=== PATIENT | female | born 1960 | race Caucasian/White ===

== ENCOUNTER 2022-03-03 08:52 | Emergency (ER) | payer BC, SELFPAY ==
--- NOTE | ~2022-03-03 | XR_ITS ---
EXAMINATION: XR TIBIA AND FIBULA, RIGHT CLINICAL INFORMATION: Right leg pain status post fall. COMPARISON: None TECHNIQUE: AP and lateral views of the right tibia and fibula were obtained. An indicator arrow points to the anteroinferior calf. FINDINGS: The right tibia and fibula are intact. There is no acute fracture or dislocation. The tarsal bones are normally aligned. Mild soft tissue swelling is seen anteroinferiorly without underlying abnormality. XR/XR tibia fibula RT 2V IMPRESSION: Mild soft tissue swelling anteroinferiorly in the right calf without acute underlying osseous abnormality.
--- NOTE | ~2022-03-03 | CT_ITS ---
EXAMINATION: CT CERVICAL SPINE WITHOUT CONTRAST CLINICAL INFORMATION: Neck pain status post fall. COMPARISON: None TECHNIQUE: Multiple axial images of the cervical spine were obtained without the administration of intravenous contrast. Coronal and sagittal reformatted images were obtained. This CT examination was performed using dose optimization techniques as appropriate, variously including the following: *Automated exposure control *Adjustment of mA and/or kV according to patient size (this includes techniques or standardized protocols for targeted exams where dose is matched to indication/reason for exam; i.e. extremities or head) *Use of iterative reconstruction technique DLP: 366.32 mGy-cm FINDINGS: There is mild reversal of the normal cervical lordosis. Mild to moderate degenerative disc disease is seen most pronounced at C3-4 and C6-7. The vertebral bodies are intact. The odontoid process is intact with mild articular degenerative changes. The neural foramina are patent. The facet joints show mild to moderate degenerative changes most pronounced on the left at C4-5. The spinous processes are intact. The cervical soft tissues are unremarkable. There is no lymphadenopathy. The thyroid gland is unremarkable. The visualized lung apices are clear. CT/CT cervical spine wo IV con IMPRESSION: 1. Mild reversal of the normal cervical lordosis may be secondary to positioning and/or muscle spasm. 2. Mild to moderate multilevel degenerative changes without acute abnormality.
--- NOTE | ~2022-03-03 | CT_ITS ---
EXAMINATION: CT HEAD WITHOUT CONTRAST CLINICAL INFORMATION: Head pain status post fall. Rule out intracranial abnormality. COMPARISON: None TECHNIQUE: Contiguous axial imaging was performed from the skull base to vertex without intravenous administration of contrast. Coronal and sagittal reformatted images were obtained. This CT examination was performed using dose optimization techniques as appropriate, variously including the following: *Automated exposure control *Adjustment of mA and/or kV according to patient size (this includes techniques or standardized protocols for targeted exams where dose is matched to indication/reason for exam; i.e. extremities or head) *Use of iterative reconstruction technique DLP: 781 mGy-cm FINDINGS: The cortical sulci are normal. The lateral ventricles are symmetrical. The third and fourth ventricles are in their normal midline position. The basilar and prepontine cisterns are unremarkable. There is no acute intra or extracerebral abnormality. There is no mass effect or midline shift. Sections through the bony calvarium are unremarkable. The paranasal sinuses are clear. The bony orbits and orbital contents are unremarkable. CT/CT head/brain wo IV con IMPRESSION: No acute intracranial pathology.
[2022-03-03 09:01] VITALS: BP 126/72; PULSE 88; O2SAT 99
[2022-03-03 09:04] VITALS: BP 125/81; PULSE 72; RESP 16; TEMP 36.4; O2SAT 96; BMI 29.2
--- NOTE | 2022-03-03 09:08 | ED_ITS ---
HPI - Fall General Chief Complaint: Head Injury Stated Complaint: FALL W/HEAD LAC,BLEED CONTROL,-THINNERS PER EMS Time Seen by Provider: 03/03/22 09:06 Source: patient Mode of arrival: EMS Limitations: no limitations History of Present Illness complaint: fall Onset (ago): minute(s) (just prior to arrival ) Fall from: standing Fall witnessed: no Place fall occurred: home Loss of consciousness: none Prolonged down time: no Symptoms prior to fall: none Context: tripped/slipped Location of injury: head and face Location of injury - extremities: right: lower leg Severity: mild Quality: dull and aching Associated symptoms (after fall): headache Related Data Allergies Allergy/AdvReac Type Severity Reaction Status Date / Time Unable to Assess Allergy Verified 03/03/22 09:05 Review of Systems Review of Systems: Constitutional : No Fever, No Chills ENT/Mouth : No Ear Pain, No Hoarseness, No sore throat Eyes: No Eye Pain, No Swelling, No Redness, No Foreign Body Cardiovascular : No Chest Pain, No SOB Respiratory : No Cough, No Dyspnea Gastrointestinal : No Nausea, No Vomiting, No Diarrhea, No abdominal Pain Genitourinary : No Dysuria, No Hematuria Musculoskeletal : positive joint pain, No Myalgias, No Joint Swelling Skin : pos Skin lacerations, No rash Neuro : No Weakness, No Numbness, No Loss of Consciousness, No Dizziness, No Headache Psych : No Anxiety/Panic, No Depression Heme/Lymph: no easy bruising, no Lymphadenopathy Endocrine : No Polyuria, No Polydipsia All other systems reviewed and are negative [facility] Past Medical History Attestation statement: The following information was validated with the patient. Medical History No pertinent past medical history Social History Social History (Updated 03/03/22 @ 09:19 by Shakira Ro DO) Patient Tobacco Use Status: Never used Tobacco Advance Directives: No Advance Directives Information Provided: No Physical Exam Vital Signs: Vital Signs: Last Vital Signs Temp 97.6 F 03/03/22 09:04 Pulse 72 03/03/22 09:04 Resp 16 03/03/22 09:04 BP 125/81 03/03/22 09:04 Pulse Ox 96 03/03/22 09:04 O2 Del Method 03/03/22 09:04 BMI result Body Mass Index 29.2 Appearance: Alert. Oriented X3. No acute distress. Eyes: Pupils equal, round and reactive to light. ENT: Pharynx normal. R forehead 1cm laceration then 2cm stellate superficial laceration Neck: Normal inspection. Neck supple. CVS: Normal heart rate and rhythm. Pulses normal. Respiratory: No respiratory distress. Breath sounds normal. Abdomen: Soft and non-tender. Skin: Skin warm and dry. Normal skin color. Normal skin turgor. Extremities: No lower extremity edema. No calf ttp R anterior nelson contusion and superficial abrasion Neuro: Oriented X 3. No motor deficit. No sensory deficit. Procedures Laceration Laceration 1: Site: face Side (If applicable): right Size (cm): 1 Description: linear Depth: simple, single layer Local Anesthetic: lidocaine 1% Amount of anesthesia used (mL): 2 Pre-repair: wound explored and irrigated extensively Skin layer closed with: nylon Size (cm): 5-0 Number of sutures: 1 Technique: simple, interrupted Laceration 2: Site: face Size (cm): 2 Description: stellate Depth: simple, single layer Local Anesthetic: lidocaine 1% Amount of anesthesia used (mL): 2 Pre-repair: wound explored and irrigated extensively Skin layer closed with: nylon Size (cm): 5-0 Number of sutures: 4 Technique: simple, interrupted MDM - Fall MDM Narrative Medical decision making narrative: 61 yo female not on blood thinners here with mechanical fall injury to head and R leg - CT head/cspine as well as R tib xray - will need sutures for head, Tdap is UTD. She is GCS 15. Not toxic appearing. Discharge Plan Discharge Clinical Impression: Closed head injury, Abrasion Patient Disposition: Home, Self-Care Instructions: Head Injury (ED), Contusion in Adults (ED), Facial Laceration (ED) Additional Instructions: return to ED for any worsening symptoms or concerns okay to shower but otherwise no water exposures - wait to shower area for 24 hours monitor for redness, swelling, yellow drainage, fevers sutures out in 7 days - PCP, urgent care or ER after head injury avoid alcohol, movies/video games, strenous activity for 5 days okay to take tylenol for headaches xray no fracture CT head and cervical spine no trauma seen There is mild reversal of the normal cervical lordosis. Mild to moderate degenerative disc disease is seen most pronounced at C3-4 and C6-7. The vertebral bodies are intact. The odontoid process is intact with mild articular degenerative changes. The neural foramina are patent. The facet joints show mild to moderate degenerative changes most pronounced on the left at C4-5. The spinous processes are intact. The cervical soft tissues are unremarkable. There is no lymphadenopathy. The thyroid gland is unremarkable. The visualized lung apices are clear. CT/CT cervical spine wo IV con IMPRESSION: 1. Mild reversal of the normal cervical lordosis may be secondary to positioning and/or muscle spasm. 2. Mild to moderate multilevel degenerative changes without acute abnormality. Stand Alone Forms: Work/School Release
[2022-03-03] MEDS: Lidocaine HCl 1 % MPF 5 ML VIAL 2 ML SUBCUT (09:40)
[2022-03-03] MEDS: Acetaminophen 325 MG TABLET 650 MG PO (09:57)
--- NOTE | 2022-03-03 10:48 | PC.NURSE ---
PT AWAKE, ALERT AND ORIENTED X 3. SKIN WARM AND DRY. RESP UNLABORED. GCS 15. PT DENIES DIZZINESS. DENIES LOC. EVALUATED BY DR SIBLEY. HEAD CT ORDERED. PT SUTURED BY ORIN VERNON. PLAN IS FOR DC HOME. PT AGREEABLE. AMBULATORY, GAIT STEADY
== END 2022-03-03 10:51 | disposition home or self-care (01) ==
PROVIDERS: Emergency Provider Emergency Medicine
DX: S09.90XA Unspecified injury of head, initial encounter (principal); S01.81XA Laceration without foreign body of other part of head, initial encounter; S80.11XA Contusion of right lower leg, initial encounter; S80.811A Abrasion, right lower leg, initial encounter; M54.2 Cervicalgia; W19.XXXA Unspecified fall, initial encounter; Y93.9 Activity, unspecified; Y92.039 Unspecified place in apartment as the place of occurrence of the external cause; Y99.9 Unspecified external cause status
CPT/HCPCS: 12013; 70450; 72125; 73590; 99283; 99284